=== PATIENT | female | born 1995 | race Caucasian/White ===

== ENCOUNTER 2022-11-30 13:20 | Emergency (ER) | payer OTHER ==
[~2022-11-30] VITALS: Ht 152.4 cm; Wt 79.4 kg
[2022-11-30 15:59] VITALS: BP 130/60
[2022-11-30] MEDS ORDERED: IBUP800T27 PO (16:02)
[2022-11-30] MEDS ORDERED: IBUPROFEN 800 MG TAB PO ONE (16:15)
== END 2022-11-30 16:17 | disposition home or self-care (01) ==
LOC: ER 13:20
DX: S42.012A Anterior displaced fracture of sternal end of left clavicle, initial encounter for closed fracture (principal); Z79.1 Long term (current) use of non-steroidal anti-inflammatories (NSAID); V00.311A Fall from snowboard, initial encounter; Y93.23 Activity, snow (alpine) (downhill) skiing, snowboarding, sledding, tobogganing and snow tubing; Y92.89 Other specified places as the place of occurrence of the external cause; Y99.8 Other external cause status
CPT/HCPCS: 73000